=== PATIENT | male | born 2000 | race African-American/Black ===

== ENCOUNTER → 2019-05-19 | Outpatient (CLI) | payer BC, OTHER ==
--- NOTE | 2019-05-19 14:50 | RAD ---
INDICATION: Postoperative evaluation COMPARISON: November 25, 2018 IMPRESSION: Left knee: 2 views obtained. Postoperative changes to the knee with joint effusion identified as well as linear lucency in the patella as well as the proximal tibia which could be secondary to operative defect. Edema within Hoffa's fat pad. Electronically signed by: David Powell MD (05/19/2019 2:47 PM) [id number]
== END | disposition home or self-care (01) ==
LOC: RAD 14:03
PROVIDERS: ATTEND Physician Assistant
DX: S83.212A Bucket-handle tear of medial meniscus, current injury, left knee, initial encounter (principal); M25.462 Effusion, left knee; M79.89 Other specified soft tissue disorders; X58.XXXA Exposure to other specified factors, initial encounter; Y93.89 Activity, other specified; Y92.89 Other specified places as the place of occurrence of the external cause; Y99.8 Other external cause status
CPT/HCPCS: 73560